=== PATIENT | female | born 1955 | race Caucasian/White ===

== ENCOUNTER 2021-07-09 08:48 | Outpatient (CLI) | payer MEDICARE, MEDICAID, SELFPAY ==
--- NOTE | ~2021-07-09 | PE_ITS ---
EXAMINATION: PET skull to mid thigh DATE: 07/09/2021 12:38 INDICATION: Left lung mass TECHNIQUE: Blood glucose level was 133 mg/dL. 10.217 mCi of 18-fluorodeoxyglucose (18-FDG) was admini stered i.v. Low dose computed tomography (CT) images were acquired from the base of the brain to the proximal thighs for attenuation correction and anatomic localization. Positron emission tomography (P ET) images were acquired in the same distribution beginning 56 minutes after injection. Images includ ing fused PET/CT images were reconstructed in axial, coronal, and sagittal planes. Automated exposure control technique was employed. The dose-length product was 1153.21mGy-cm. COMPARISON: 02/11/2017 FINDINGS: Head/neck: There is symmetric increased activity in the oral cavity, laryngeal muscles and ocular muscles withou t CT correlate, likely physiologic. There is mild increased uptake associated with severe facet osteo arthritis at the right C4-C5 facet joint. No pathologically enlarged cervical lymphadenopathy or susp icious foci of increased FDG uptake in the visualized head or neck. Chest: Right internal jugular central venous port catheter with distal tip at the caudal superior vena cava. Postoperative change of prior right lower lobectomy with removal of the previously seen FDG avid thi ck-walled cavitary mass. Mild right apical pleural-parenchymal scarring. There is an additional atele ctasis/pleural parenchymal scarring at the posterior medial aspect of the right upper lobe and the lo wer lung zone. No suspicious pulmonary nodules, pneumonia, pulmonary edema or other pulmonary infiltr ates. No pleural effusion. Heart size is normal. No pericardial effusion. Calcified right hilar and m ediastinal lymph nodes consistent with old granulomatous disease. Also diffuse mild likely physiologi c synovial uptake at the bilateral shoulders without radiologic correlate. No pathologically enlarged thoracic lymphadenopathy or abnormal FDG avid lesions. Abdomen/pelvis/proximal thighs: Cholecystectomy clips the gallbladder fossa. Physiologic renal accumulation and excretion of FDG acti vity in the kidneys, bladder and along portions of ureters. Normal degree and heterogenous pattern of increased uptake throughout the liver without radiologic correlate or dominant FDG avid lesion. Stab le appearance of spondylosis in the left upper quadrant which could be related to prior trauma or kirt [place] with no abnormal FDG uptake associated with the multiple residual small splenules. The pancreas and bilateral adrenal glands are normal. Large [place] ventral hernia containing multiple loops of nonobstructed large and small bowel. Interval bowel surgery with anastomotic suture line in the anter ior left pelvis. Mild uptake scattered throughout the bowels without radiologic correlate, also likel y physiologic. The uterus is not identified and has likely been surgically resected. Portions of t he the pelvis including the posterior bladder are obscured by prominent metallic streak artifact asso ciated with a left total hip arthroplasty. The previously seen cystic left adnexal mass is no longer seen and there are new surgical clips in the left adnexal region suggesting interval left oophorectom y. No other abnormal foci of increased FDG uptake or pathologically enlarged lymphadenopathy in the a bdomen, pelvis or proximal thighs. Musculoskeletal: Mild to moderate spondylosis at the cervical, thoracic and lumbar spine. No suspicious lytic, blastic or FDG avid bone lesions aside from the previous noted likely degenerative mild increased FDG uptake at the right C4-C5 facet joint. IMPRESSION: 1. Status post right lower lobectomy likely for lung cancer. Correlate with surgical history. No evid ent residual, recurrent or metastatic disease. Reviewed, dictated and finalized at
[2021-07-09 09:27] LABS: Glucose Point of Care 133 mg/dl (65-105)
== END 2021-07-09 08:49 | disposition home or self-care (01) ==
LOC: ANHIMG 08:54
PROVIDERS: PCP Physician Assistant; Visit Provider Physician Assistant
DX: R91.8 Other nonspecific abnormal finding of lung field (principal); Z90.2 Acquired absence of lung [part of]
CPT/HCPCS: 78815; A9552